=== PATIENT | male | born 1975 | race Two or more races ===

== ENCOUNTER → 2016-08-08 | Outpatient (CLI) | payer MEDICAID | LOC: FIMAGING 08:28 | PROVIDERS: ATTEND Internal Medicine Gastroenterology | DX: K44.9 Diaphragmatic hernia without obstruction or gangrene (principal) ==

== ENCOUNTER → 2016-09-28 | Outpatient (CLI) | payer MEDICAID | LOC: FIMAGING 09:53 | PROVIDERS: ATTEND Internal Medicine Gastroenterology | DX: R07.9 Chest pain, unspecified (principal); K76.0 Fatty (change of) liver, not elsewhere classified ==